=== PATIENT | female | born 1975 | race African-American/Black ===

== ENCOUNTER 2016-08-23 12:14 | Emergency (ER) | payer MEDICAID ==
[~2016-08-23] VITALS: Ht 170.2 cm; Wt 63.5 kg
[~2016-08-23 12:14] MED LIST: FLUC100T34 PO; METR500T PO
[2016-08-23 13:22] VITALS: BP 106/83
[2016-08-23] MEDS ORDERED: ONDANSETRON HCL 4 MG/2 ML VIAL IM ONE (13:30)
[2016-08-23] MEDS ORDERED: MEPERIDINE HCL (50 MG/ML) 1 ML VIAL IM ONE (13:30)
== END 2016-08-23 14:00 | disposition home or self-care (01) ==
LOC: ER 12:14
DX: G89.29 Other chronic pain (principal); M54.5 Low back pain; F17.210 Nicotine dependence, cigarettes, uncomplicated; F12.10 Cannabis abuse, uncomplicated
CPT/HCPCS: 96372; 99284; J2175; J2405

== ENCOUNTER 2016-11-04 13:43 | Emergency (ER) | payer MEDICAID ==
[~2016-11-04] VITALS: Ht 170.2 cm; Wt 64.0 kg
[2016-11-04 14:00] VITALS: BP 124/82
[2016-11-04] MEDS ORDERED: MEPERIDINE HCL (50 MG/ML) 1 ML VIAL IM ONE (14:30)
[2016-11-04] MEDS ORDERED: PROMETHAZINE HCL 25 MG/ML 1ML IM ONE (14:30)
== END 2016-11-04 15:08 | disposition home or self-care (01) ==
LOC: ER 13:43
DX: G89.29 Other chronic pain (principal); M54.5 Low back pain; R20.0 Anesthesia of skin; F17.210 Nicotine dependence, cigarettes, uncomplicated; F12.10 Cannabis abuse, uncomplicated; Z90.710 Acquired absence of both cervix and uterus
CPT/HCPCS: 96372; 99284; J2175; J2550

== ENCOUNTER 2017-01-27 19:47 | Emergency (ER) | payer MEDICAID ==
[~2017-01-27] VITALS: Ht 170.2 cm; Wt 63.5 kg
[2017-01-27 21:58] LABS: Basophils # (auto) 0.1 uL; Basophils % (auto) 0.6 % (0.0-2.0); Eosinophils # (auto) 0.1 uL; Eosinophils % (auto) 1.4 % (0.0-7.0); Hematocrit 41.1 % (36.0-46.0); Hemoglobin 13.4 g/dL (12.2-16.2); Lymphocytes # (auto) 3.1 uL; Lymphocytes % (auto) 32.2 % (10.0-50.0); Mean Corpuscular Hemoglobin 29.2 pg (28.0-32.0); Mean Corpuscular Hgb Conc. 32.7 g/dL (32.0-36.0); Mean Corpuscular Volume 89.1 fL (80.0-100.0); Monocytes # (auto) 0.7 uL; Monocytes % (auto) 7.2 % (0.0-12.0); Neutrophils # (auto) 5.7 uL; Neutrophils % (auto) 58.6 % (37.0-80.0); Nucleated Red Blood Cells % 0.1 %; Platelet Count (auto) 333 10^3/uL (140-450); Red Cell Distribution Width 12.9 % (11.8-14.3); White Blood Cell 9.7 10^3/uL (4.4-10.8)
[2017-01-27 22:13] LABS: Albumin 3.8 g/dL (3.4-5.0); Anion Gap 6 (5-15); Blood Urea Nitrogen 8 mg/dL (7-18); Calcium 9.1 mg/dL (8.5-10.1); Carbon Dioxide 27 mmol/L (21-32); Chloride 112 mmol/L (98-107); Glucose 79 mg/dL (74-106); Magnesium 2.3 mg/dL (1.6-2.6); Potassium 3.7 mmol/L (3.5-5.1); Sodium 145 mmol/L (136-145)
[2017-01-27 22:15] LABS: Aspartate Aminotransferase 12 U/L (15-37); BUN/Creatinine Ratio 8.7; GFR African American 87 mL/min; GFR Non-African American 72 mL/min
[2017-01-27 22:19] LABS: Alkaline Phosphatase 90 U/L (45-117); Bilirubin, Total 0.4 mg/dL (0.2-1.0); Total Protein 7.6 g/dL (6.4-8.2)
[2017-01-28] MEDS: diphenhdrAMINE HCL 50 MG/1 ML VL IV ONE ×2 (07:20→07:35)
[2017-01-28 07:25] VITALS: BP 114/83
== END 2017-01-28 07:41 | disposition home or self-care (01) ==
LOC: EDBD 19:47 → ER 19:57
DX: R07.9 Chest pain, unspecified (principal); G89.29 Other chronic pain; M54.5 Low back pain; Z90.710 Acquired absence of both cervix and uterus; F17.210 Nicotine dependence, cigarettes, uncomplicated
CPT/HCPCS: 36415; 71020; 80053; 83735; 84484; 84702; 85025; 93005; 96374; 99285; J1200

== ENCOUNTER 2017-04-05 10:11 | Emergency (ER) | payer MEDICAID ==
[~2017-04-05] VITALS: Ht 170.2 cm; Wt 63.5 kg
[2017-04-05 10:37] VITALS: BP 111/79
[2017-04-05] MEDS ORDERED: MORPHINE SULF INJ 2 MG/ML SYRINGE 1ML IM ONE (11:00)
[2017-04-05] MEDS ORDERED: ONDANSETRON HCL 4 MG/2 ML VIAL IM ONE (11:00)
== END 2017-04-05 11:36 | disposition home or self-care (01) ==
LOC: ER 10:11
DX: M54.5 Low back pain (principal); G89.29 Other chronic pain; F17.210 Nicotine dependence, cigarettes, uncomplicated
CPT/HCPCS: 96372; 99284; J2270; J2405

== ENCOUNTER 2017-06-18 15:32 | Emergency (ER) | payer MEDICAID ==
[~2017-06-18] VITALS: Ht 170.2 cm; Wt 65.8 kg
[2017-06-18] MEDS ORDERED: HYDROcodone-ACET 10/325MG TAB PO ONE (21:45)
[2017-06-18] MEDS ORDERED: KETOROLAC TROMETH 60MG/2ML VIAL IM ONE (21:45)
[2017-06-18 22:25] LABS: Basophils # (auto) 0 uL; Basophils % (auto) 0.3 % (0.0-2.0); Hemoglobin 11.3 g/dL (12.2-16.2); Mean Corpuscular Volume 88.4 fL (80.0-100.0); Monocytes # (auto) 0.6 uL
[2017-06-18 22:26] LABS: Eosinophils # (auto) 0.2 uL; Eosinophils % (auto) 1.3 % (0.0-7.0); Hematocrit 35.1 % (36.0-46.0); Lymphocytes # (auto) 2.3 uL; Lymphocytes % (auto) 18.5 % (10.0-50.0); Mean Corpuscular Hemoglobin 28.3 pg (28.0-32.0); Neutrophils # (auto) 9.5 uL; Neutrophils % (auto) 74.9 % (37.0-80.0); Nucleated Red Blood Cells % 0.1 %; Platelet Count (auto) 452 10^3/uL (140-450); Red Blood Cells 3.98 10^6/uL (4.0-5.20); Red Cell Distribution Width 13.1 % (11.8-14.3); White Blood Cell 12.7 10^3/uL (4.4-10.8)
[2017-06-18] MEDS ORDERED: cefTRIAXone SOD 1,000 MG VL IM ONE (23:00)
[2017-06-18 23:09] VITALS: BP 139/86
== END 2017-06-18 23:30 | disposition home or self-care (01) ==
LOC: ER 15:36
DX: M54.5 Low back pain (principal); F17.210 Nicotine dependence, cigarettes, uncomplicated; Z98.890 Other specified postprocedural states; Z90.710 Acquired absence of both cervix and uterus
CPT/HCPCS: 36415; 72131; 85025; 93005; 96372; 99285; J0696; J1885